=== PATIENT | female | born 1965 | race Caucasian/White ===

== ENCOUNTER 2018-05-23 09:41 | Day surgery (SDC) | payer OTHER ==
[2018-05-23] MEDS ORDERED: PROPOFOL 40 ML (11:02)
[2018-05-23] MEDS ORDERED: PROPOFOL 20 ML (11:34)
== END 2018-05-23 13:18 | disposition home or self-care (01) ==
LOC: GIL 09:41
DX: Z12.11 Encounter for screening for malignant neoplasm of colon (principal); K29.50 Unspecified chronic gastritis without bleeding; D12.5 Benign neoplasm of sigmoid colon; K64.8 Other hemorrhoids; K21.9 Gastro-esophageal reflux disease without esophagitis; E03.9 Hypothyroidism, unspecified
CPT/HCPCS: 43239; 88305; 88312